=== PATIENT | female | born 1990 | race African-American/Black ===

== ENCOUNTER → 2016-11-26 | Outpatient (CLI) | payer MEDICAID ==
[2016-11-26 19:38] LABS: ABSOLUTE BASOPHILS # (AUTO) 0.1 10^3/uL (0.0-0.2); ABSOLUTE EOSINOPHILS # (AUTO) 0.2 10^3/uL (0.0-0.6); ABSOLUTE LYMPHOCYTES (AUTO) 2.4 10^3/uL (0.5-4.7); ABSOLUTE MONOCYTES (AUTO) 0.8 10^3/uL (0.1-1.4); ABSOLUTE NEUT (AUTO) 6.8 10^3/uL (1.7-8.2); BASOPHILS % (AUTO) 0.9 % (0-2); EOSINOPHILS % (AUTO) 1.9 % (0-6); HEMATOCRIT 37.1 % (36.0-47.0); HEMOGLOBIN 12.3 g/dL (12.0-15.5); HGB HCT DIFFERENCE -0.2; LYMPHOCYTES % (AUTO) 23.3 % (13-45); MEAN CORPUSCULAR HEMOGLOBIN 28.9 pg (27.0-33.4); MEAN CORPUSCULAR HGB CONC 33.2 g/dL (32.0-36.0); MEAN CORPUSCULAR VOLUME 87 fl (80-97); MONOCYTES % (AUTO) 7.7 % (3-13); RED BLOOD COUNT 4.27 10^6/uL (3.72-5.28); RED CELL DISTRIBUTION WIDTH 12.7 % (11.5-14.0); SEGMENTED NEUTROPHILS % (AUTO) 66.2 % (42-78); WHITE BLOOD COUNT 10.2 10^3/uL (4.0-10.5)
== END ==
LOC: LAB 19:18
PROVIDERS: ATTEND Emergency Medicine
DX: H92.03 Otalgia, bilateral (principal); J02.9 Acute pharyngitis, unspecified
CPT/HCPCS: 36415; 85025; 86140; 86308; 87070

== ENCOUNTER → 2017-08-01 | Outpatient (CLI) | payer MEDICAID ==
[2017-08-01 12:04] LABS: ABSOLUTE BASOPHILS # (AUTO) 0.1 10^3/uL (0.0-0.2); ABSOLUTE EOSINOPHILS # (AUTO) 0.3 10^3/uL (0.0-0.6); ABSOLUTE LYMPHOCYTES (AUTO) 2.2 10^3/uL (0.5-4.7); ABSOLUTE MONOCYTES (AUTO) 0.5 10^3/uL (0.1-1.4); ABSOLUTE NEUT (AUTO) 3.9 10^3/uL (1.7-8.2); BASOPHILS % (AUTO) 1.2 % (0-2); EOSINOPHILS % (AUTO) 4.3 % (0-6); HEMATOCRIT 36.2 % (36.0-47.0); HEMOGLOBIN 11.8 g/dL (12.0-15.5); LYMPHOCYTES % (AUTO) 31.1 % (13-45); MEAN CORPUSCULAR HEMOGLOBIN 27.6 pg (27.0-33.4); MEAN CORPUSCULAR HGB CONC 32.6 g/dL (32.0-36.0); MEAN CORPUSCULAR VOLUME 85 fl (80-97); MONOCYTES % (AUTO) 7.6 % (3-13); PLATELET COUNT 288 10^3/uL (150-450); RED BLOOD COUNT 4.28 10^6/uL (3.72-5.28); SEGMENTED NEUTROPHILS % (AUTO) 55.8 % (42-78); TOTAL CELLS COUNTED % (AUTO) 100 %; WHITE BLOOD COUNT 7.1 10^3/uL (4.0-10.5)
== END ==
LOC: OD 11:34
PROVIDERS: ATTEND Emergency Medicine
DX: N93.9 Abnormal uterine and vaginal bleeding, unspecified (principal)
CPT/HCPCS: 36415; 84702; 85025

== ENCOUNTER 2017-09-08 09:12 | Emergency (ER) | payer OTHER, MEDICAID ==
--- NOTE | 2017-09-08 10:15 | ER Document Report ---
ED Medical Screen (RME) - General Chief Complaint: Flank Pain Stated Complaint: ABDOMINAL PAIN, FEVER, FREQUENT URINATION Time Seen by Provider: 09/08/17 10:09 Notes: RME DISCLOSURE I have seen this patient as part of a Rapid Medical Evaluation and, if applicable, placed any initially appropriate orders. The patient will be seen and fully evaluated, including a full history and physical exam, by a provider ( in Main ED or Fast Track) when a room becomes available. 27-year-old female past medical history renal cysts here with complaints of right flank pain ongoing for many months now but progressively worsening. She states that she has a history of renal cyst but that the ones on the right side have been progressively growing larger in size each year but have never caused pain. She also has urinary frequency and had a fever at home of 100.8 Fahrenheit. TRAVEL OUTSIDE OF THE [place] IN LAST 30 DAYS: No - Related Data Allergies/Adverse Reactions: cyclobenzaprine HCl [From Flexeril] Adverse Reaction (Mild, Verified 09/08/17 09 :20) Hallucinations oxycodone HCl [From Percocet] Adverse Reaction (Mild, Verified 09/08/17 09:20) Hallucinations Past Medical History - Social History Frequency of alcohol use: None Drug Abuse: None Renal/ Medical History: Denies: Hx Peritoneal Dialysis - Immunizations Hx Diphtheria, Pertussis, Tetanus Vaccination: Yes Physical Exam - Vital signs Vitals: Temp Pulse Resp BP Pulse Ox 98.9 F 102 H 16 117/74 100 09/08/17 09:36 09/08/17 09:36 09/08/17 09:36 09/08/17 09:36 09/08/17 09:36 Course - Vital Signs Vital signs: Temp Pulse Resp BP Pulse Ox 98.9 F 102 H 16 117/74 100 09/08/17 09:36 09/08/17 09:36 09/08/17 09:36 09/08/17 09:36 09/08/17 09:36
[2017-09-08 10:55] LABS: ABSOLUTE BASOPHILS # (AUTO) 0.1 10^3/uL (0.0-0.2); ABSOLUTE EOSINOPHILS # (AUTO) 0.4 10^3/uL (0.0-0.6); ABSOLUTE LYMPHOCYTES (AUTO) 1.6 10^3/uL (0.5-4.7); ABSOLUTE MONOCYTES (AUTO) 0.5 10^3/uL (0.1-1.4); ABSOLUTE NEUT (AUTO) 5.7 10^3/uL (1.7-8.2); BASOPHILS % (AUTO) 0.7 % (0-2); EOSINOPHILS % (AUTO) 4.8 % (0-6); HEMATOCRIT 39.2 % (36.0-47.0); HEMOGLOBIN 12.6 g/dL (12.0-15.5); LYMPHOCYTES % (AUTO) 19.4 % (13-45); MEAN CORPUSCULAR HEMOGLOBIN 26.9 pg (27.0-33.4); MEAN CORPUSCULAR HGB CONC 32.3 g/dL (32.0-36.0); MEAN CORPUSCULAR VOLUME 83 fl (80-97); MONOCYTES % (AUTO) 5.6 % (3-13); PLATELET COUNT 315 10^3/uL (150-450); RED BLOOD COUNT 4.71 10^6/uL (3.72-5.28); RED CELL DISTRIBUTION WIDTH 13.8 % (11.5-14.0); SEGMENTED NEUTROPHILS % (AUTO) 69.5 % (42-78); TOTAL CELLS COUNTED % (AUTO) 100 %; WHITE BLOOD COUNT 8.2 10^3/uL (4.0-10.5)
[2017-09-08 11:12] LABS: ANION GAP 14 (5-19); BLOOD UREA NITROGEN 8 mg/dL (7-20); CALCIUM 10.2 mg/dL (8.4-10.2); CARBON DIOXIDE 25 mmol/L (22-30); CHLORIDE 100 mmol/L (98-107); GLUCOSE 89 mg/dL (75-110); POTASSIUM 4.1 mmol/L (3.6-5.0); SODIUM 139.4 mmol/L (137-145)
[2017-09-08 11:17] LABS: APPEARANCE,URINE CLEAR; BILIRUBIN,URINE NEGATIVE (NEGATIVE); COLOR,URINE COLORLESS; GLUCOSE, URINE NEGATIVE (NEGATIVE); KETONES,URINE NEGATIVE (NEGATIVE); LEUKOCYTE ESTERASE,URINE NEGATIVE (NEGATIVE); NITRITE,URINE NEGATIVE (NEGATIVE); PROTEIN,URINE NEGATIVE (NEGATIVE); URINE SPECIFIC GRAVITY 1.002; UROBILINOGEN,URINE NEGATIVE mg/dL (<2.0)
--- NOTE | 2017-09-08 11:40 | RADIOLOGY REPORT (SQ) ---
EXAM DESCRIPTION: CT LTD RENAL STONE PROTOCOL ON COMPLETED DATE/TIME: 09/08/2017 11:04 am REASON FOR STUDY: R flank pain; eval cysts stones stranding etc COMPARISON: None. TECHNIQUE: CT scan of the abdomen and pelvis performed without intravenous or oral contrast. Images reviewed with lung, soft tissue, and bone windows. Reconstructed coronal and sagittal MPR images revi ewed. All images stored on PACS. All CT scanners at this facility use dose modulation, iterative reconstruction, and/or weight based d osing when appropriate to reduce radiation dose to as low as reasonably achievable (ALARA). [facility]: Dose Right [facility]: CareDose [facility]: Dose Right [facility]: Teradose 4D [facility]: Smart Simphatic RADIATION DOSE: CT Rad equipment meets quality standard of care and radiation dose reduction techniq ues were employed. CTDIvol: 5.5 mGy. DLP: 282 mGy-cm.mGy. LIMITATIONS: None. FINDINGS: LOWER CHEST: No significant findings. No nodules or infiltrates. NON-CONTRASTED LIVER, SPLEEN, ADRENALS: Evaluation limited by lack of IV contrast. No identified sign ificant masses. PANCREAS: No masses. No peripancreatic inflammatory changes. GALLBLADDER: No identified stones by CT criteria. No inflammatory changes to suggest cholecystitis. RIGHT KIDNEY AND URETER: Low-attenuation cortical lesions, likely cortical cysts, measuring 1 cm and 2.5 cm. No suspicious masses. Assessment limited by lack of IV contrast. No significant calcificat ions. No hydronephrosis or hydroureter. LEFT KIDNEY AND URETER: No suspicious masses. Assessment limited by lack of IV contrast. No signifi cant calcifications. No hydronephrosis or hydroureter. AORTA AND RETROPERITONEUM: No aneurysm. No retroperitoneal masses or adenopathy. BOWEL AND PERITONEAL CAVITY: No obvious masses or inflammatory changes. No free fluid. APPENDIX: Not visualized. PELVIS, BLADDER, AND ABDOMINAL WALL:No abnormal masses. No free fluid. Bladder normal. BONES: No significant findings. OTHER: No other significant finding. IMPRESSION: PROBABLE CORTICAL CYSTS IN THE RIGHT KIDNEY. NO OTHER SIGNIFICANT OR ACUTE PROCESS IN T HE ABDOMEN OR PELVIS. COMMENT: Quality ID # [id number]: Final reports with documentation of one or more dose reduction techniques (e.g., Automated exposure control, adjustment of the mA and/or kV according to patient size, use of iterative reconstruction technique) TECHNICAL DOCUMENTATION: JOB ID: [id number] [employer] All Rights Reserved Reading location - IP/workstation name: [email or web address]
--- NOTE | 2017-09-08 12:21 | ER Document Report ---
ED General - General Chief Complaint: Flank Pain Stated Complaint: ABDOMINAL PAIN, FEVER, FREQUENT URINATION Time Seen by Provider: 09/08/17 10:09 Mode of Arrival: Ambulatory Information source: Patient Notes: 27-year-old female with story of renal cysts and prior uro-lithiasis presents with complaint of bilateral flank pain, low-grade fever and frequent urination. Patient states pain started 2 months prior to arrival but that over the last couple of days her right flank pain worsened. She denies any injury. he states that her last episode of kidney stones was over 7 years ago. She has been taking Tylenol without relief. Pain is described as aching, constant and without radiation. She has had associated nausea without vomiting and reported fever at home of 100.8. She denies chest pain, shortness of breath, abdominal pain, diarrhea, dysuria, hematuria, vaginal discharge. She states that she is not concerned for sexually transmitted diseases. She is monogamous with her who has been deployed for several months. Last Menstrual period was August 19, 2017. she denies any injury, falls. TRAVEL OUTSIDE OF THE [place] IN LAST 30 DAYS: No - Related Data Allergies/Adverse Reactions: cyclobenzaprine HCl [From Flexeril] Adverse Reaction (Mild, Verified 09/08/17 09 :20) Hallucinations oxycodone HCl [From Percocet] Adverse Reaction (Mild, Verified 09/08/17 09:20) Hallucinations Past Medical History - Social History Smoking Status: Never Smoker Frequency of alcohol use: None Drug Abuse: None Lives with: Family Family History: Reviewed & Not Pertinent Patient has suicidal ideation: No Patient has homicidal ideation: No Renal/ Medical History: Reports: Other - renal cysts. Denies: Hx Peritoneal Dialysis - Immunizations Hx Diphtheria, Pertussis, Tetanus Vaccination: Yes Review of Systems - Review of Systems Constitutional: Fever EENT: No symptoms reported Cardiovascular: No symptoms reported Respiratory: No symptoms reported Gastrointestinal: Nausea. denies: Abdominal pain, Diarrhea, Vomiting, Poor appetite, Poor fluid intake, Black stools Genitourinary: Frequency, Flank pain. denies: Dysuria, Discharge Female Genitourinary: denies: Vaginal odor Musculoskeletal: No symptoms reported Physical Exam - Vital signs Vitals: Temp Pulse Resp BP Pulse Ox 98.9 F 102 H 16 117/74 100 09/08/17 09:36 09/08/17 09:36 09/08/17 09:36 09/08/17 09:36 09/08/17 09:36 - General General appearance: Appears well, Alert - Respiratory Respiratory status: No respiratory distress Chest status: Nontender Breath sounds: Normal Chest palpation: Normal - Abdominal Inspection: Normal Distension: No distension. No: Distended Bowel sounds: Normal Tenderness: Nontender - Back Back: CVA tenderness, Other - Bilateral CVA tenderness - Skin Skin Temperature: Warm Skin Moisture: Dry Skin Color: Normal Course - Re-evaluation Re-evalutation: 09/08/17 19:58 27-year-old female with story of renal cysts and prior urolithiasis presents with complaint of bilateral flank pain, low-grade fever and frequent urination. upon arrival vital were reviewed. Patient is afebrile, mildly tachycardic and not hypoxic. Patient does not appear toxic or dehydrated and is in NAD. Exam is significant for bilateral CVA tenderness. She has a normal abdominal exam. Patient declined pain medication throughout her ED course. CBC showed no anemia or leukocytosis. CMP shows normal kidney function without electrolyte abnormalities and UA is without evidence of infection. CT renal showed corticle cysts of the right kidney without evidence of hydronephrosis or stones. Findings discussed with patient. She is suppose tof/u with her pcp for outpatient renal ultrasound and she was encouraged to do so. Patient comfortable with discharge home. Patient was provided a rx for Motrin. Laboratory 09/08/17 09/08/17 09/08/17 10:40 10:40 10:45 WBC 8.2 RBC 4.71 Hgb 12.6 Hct 39.2 MCV 83 MCH 26.9 L MCHC 32.3 RDW 13.8 Plt Count 315 Seg Neutrophils % 69.5 Lymphocytes % 19.4 Monocytes % 5.6 Eosinophils % 4.8 Basophils % 0.7 Absolute Neutrophils 5.7 Absolute Lymphocytes 1.6 Absolute Monocytes 0.5 Absolute Eosinophils 0.4 Absolute Basophils 0.1 Sodium 139.4 Potassium 4.1 Chloride 100 Carbon Dioxide 25 Anion Gap 14 BUN 8 Creatinine 0.56 Est GFR ( Amer) > 60 Est GFR (Non-Af Amer) > 60 Glucose 89 Calcium 10.2 Urine Color COLORLESS Urine Appearance CLEAR Urine pH 7.0 Ur Specific Gilbert 1.002 Urine Protein NEGATIVE Urine Glucose (UA) NEGATIVE Urine Ketones NEGATIVE Urine Blood NEGATIVE Urine Nitrite NEGATIVE Urine Bilirubin NEGATIVE Urine Urobilinogen NEGATIVE Ur Leukocyte Esterase NEGATIVE Urine WBC (Auto) 0 Squamous Epi Cells Auto 1 Urine Mucus (Auto) RARE Urine Ascorbic Acid NEGATIVE Urine HCG, Qual NEGATIVE Limited or Localized CT 09/08/17 10:13 IMPRESSION: PROBABLE CORTICAL CYSTS IN THE RIGHT KIDNEY. NO OTHER SIGNIFICANT OR ACUTE PROCESS IN THE ABDOMEN OR PELVIS. - Vital Signs Vital signs: Temp Pulse Resp BP Pulse Ox 99.2 F 85 16 122/80 100 09/08/17 15:03 09/08/17 15:03 09/08/17 15:03 09/08/17 15:03 09/08/17 15:03 - Laboratory Result Diagrams: 09/08/17 10:40 09/08/17 10:40 Laboratory results interpreted by me: 09/08/17 10:40 MCH 26.9 L Discharge - Discharge Clinical Impression: Benign cyst of right kidney, Bilateral flank pain Condition: Good Disposition: HOME, SELF-CARE Prescriptions: Ibuprofen [Motrin 600 Mg Tablet] 600 mg PO TID #15 tablet Referrals: GURVINDER FLOREZ MD [Primary Care Provider] - Follow up in 3-5 days
[2017-09-08 15:16] VITALS: BP 122/80
== END 2017-09-08 15:00 | disposition home or self-care (01) ==
LOC: ER 09:12
DX: N28.1 Cyst of kidney, acquired (principal); R10.30 Lower abdominal pain, unspecified; R50.9 Fever, unspecified; R35.0 Frequency of micturition; Z88.6 Allergy status to analgesic agent
CPT/HCPCS: 36415; 76380; 80048; 81001; 81025; 85025; 99284